=== PATIENT | male | born 1950 | race Caucasian/White ===

== ENCOUNTER → 2016-04-01 08:24 | Outpatient (CLI) | payer BC ==
[2015-06-29 19:15] VITALS: BMI 24.7
[~2016-04-01 08:24] MED LIST: AVODART0.5 MG PO; BAYER CHEWABLE81 MG PO; HEMOCYTE PLUS C1 CAP PO; HYDROCODONE-APA1 TAB PO; K-DUR20 MEQ PO; LASIX40 MG PO; LOPRESSOR25 MG PO; PREVACID30 MG PO; TRIGLIDE160 MG PO; VITAMIN D2000 UNIT PO
== END | disposition home or self-care (01) ==
LOC: D.US 08:24
DX: I70.219 Atherosclerosis of native arteries of extremities with intermittent claudication, unspecified extremity (principal)

== ENCOUNTER → 2016-12-13 13:30 | Outpatient (CLI) | payer BC ==
[2015-06-29 19:15] VITALS: BMI 24.7
== END | disposition home or self-care (01) ==
LOC: D.US 13:30
DX: I65.23 Occlusion and stenosis of bilateral carotid arteries (principal)

== ENCOUNTER → 2017-06-06 13:05 | Outpatient (CLI) | payer MEDICARE, BC ==
[2015-06-29 19:15] VITALS: BMI 24.7
[~2017-06-06 13:05] MED LIST changes: +ACTIGALL 300 M300 MG PO; +CO Q-10100 MG; +HYDROCODON-ACE1 EAC7 PO; +PLAVIX75 MG PO; +PROBIOTIC1 EAC1 PO; +PROTONIX40 MG PO
== END | disposition home or self-care (01) ==
LOC: D.CT 06-05 14:00
DX: I73.9 Peripheral vascular disease, unspecified (principal)

== ENCOUNTER 2017-06-09 13:26 | Outpatient (CLI) | payer MEDICARE, BC ==
[~2017-06-09] VITALS: Ht 177.8 cm; Wt 79.5 kg
--- NOTE | ~2017-06-09 | HEMODYNAMI ---
PATIENT:DARIAN RIOJAS MEDICAL RECORD: [id number] : 46 [id number] ADMISSION DATE: 06/09/17 Generatedon:06/09/201710:29 Patient name: DARIAN RIOJAS Patient #: [id number] SSN: DO B: 1950 Date of study: 06/09/2017 Page: Of Hemodynamic Procedure Report Patient Data Patient Demographics Procedure consent was obtained First Name: DARIAN Gender: Male Last Name: SHINE : 1950 [facility] Initial: E Age: 67 year(s) Patient #: [id number] Race: Unknown Additional ID: [id number] Contact details Address: [address] [place] [address] [address] State: [place] City: [place] Zip code: [address] Admission Admission Data Admission Date: 06/09/2017 Admission Time: 10:00 Procedure Procedure Types Cath Procedure Peripheral Cath Diagnostic Procedure Cath Peripheral Abd/Extremity Extremities Bilat Lower Extremity Procedure Description Procedure Date Procedure Date: 06/09/2017 Procedure Start Time: 10:02 Procedure Staff Name Function Reji Dalton RT Scrub Reji Dalton RT Monitor Darian Ashraf MD Performing Physician Gabriella Gallegos RN Nurse Alona Gutierrez RT Cdl Program Coordinator Procedure Data Cath Procedure Fluoroscopy Diagnostic fluoroscopy Total fluoroscopy Time: 3.9 time: 3.9 min min Diagnostic fluoroscopy Total fluoroscopy dose: 206 dose: 206 mGy mGy Contrast Material Contrast Material Type Amount (ml) Isovue 300 10 Entry Location Entry Primary Successful Side Size Upsize Upsize Entry Closure Succes sful Closure Location (Fr) 1 (Fr) 2 (Fr) Remarks Device Remarks Femoral Left Exoseal artery Diagnostic catheters Device Type Used For End Catheter Placement Merit ULTRA BOLUS FLUSH 5Fr 65CM catheter ([id number]) Procedure Medications Medication Administration Route Dosage Heparin Flush Bag added to field 3 bags (1000units/500ml NS) Lidocaine 1% added to field 20 Oxygen NC 3 l/min Versed I.V. 1 mg Fentanyl I.V. 50 mcg Versed I.V. 1 mg Fentanyl I.V. 50 mcg Hemodynamics Rest Heart Rate: 74 (bpm) Snapshots Pre Cath Intra NCS Post Cath Vital Signs Time Heart Resp SPO2 etCO2 NIBP (mmHg) Rhythm Pain Sedation Rate (ipm) (%) (mmHg) Status Level (bpm) 9:55:15 75 13 98 20.3 154/81(127) NSR 0 (11) 10(A) , No pain 9:59:42 77 9 99 18.7 154/78(126) NSR 0 (11) 10(A) , No pain 10:04:02 74 9 100 17.2 151/82(133) NSR 0 (11) 10(A) , No pain 10:08:22 70 12 100 18.8 144/81(111) NSR 0 (11) 8(A) , No pain 10:12:42 71 12 100 21.8 149/80(117) NSR 0 (11) 8(A) , No pain 10:17:04 74 6 99 23.3 151/76(125) NSR 0 (11) 8(A) , No pain 10:21:24 72 5 99 25.5 150/79(125) NSR 0 (11) 8(A) , No pain 10:25:47 69 8 99 26.3 167/82(137) NSR 0 (11) 8(A) , No pain Medications Time Medication Route Dose Verified Delivered Reason Notes Effec tiveness by by 10:06:51 Heparin Flush added 3 Darian Farmer used for Bag to bags Ashraf Ashraf procedure (1000units/500ml field MD STEEN NS) 10:07:02 Lidocaine 1% added 20ml Darian Farmer used for to vial Ashraf Ashraf procedure field MD STEEN 10:07:18 Oxygen NC 3 Darian Quiroz used for l/min Ashraf El family day care provider MD 10:07:30 Versed I.V. 1 mg Darian Quiroz for Ashraf El RN sedation 10:07:40 Fentanyl I.V. 50 Darian Robertsody for mcg Ashraffroilan Gallegos RN sedation 10:22:43 Versed I.V. 1 mg Darian Quiroz for Ashraffroilan Gallegos RN sedation 10:22:50 Fentanyl I.V. 50 Darian Robertsody for mcg Ashraffroilan Gallegos RN sedation Procedure Log Time Note 9:34:46 Reji Dalton RT (R) (CV) sent for patient. Start room use. 9:35:01 Time tracking: Regular hours (M-F 7:00 - 5:00) 9:35:09 Plan of Care:Hemodynamics will remain stable., Cardiac rhythm will remain stable., Comfort level will be maintained., Respiratory function will remain adequate., Patient/ family verbilizes understanding of procedure., Procedure tolerated without complication., Recovers from procedure without complications.. 9:35:19 Patient received from Outpatients to IR Alert and oriented. Tansferred to table in Supine position. 9:35:20 Correct patient and procedure confirmed by team. 9:35:21 Signed procedure consent form obtained from patient. 9:35:23 ECG and BP/O2 sat monitors applied to patient. 9:35:24 Full Disclosure recording started 9:35:25 - 9:35:29 H&P Date Dictated: 06/09/2017 H&P Addendum completed by physician on day of procedure. (MUST COMPLETE FOR ALL OUTPATIENTS). 9:35:30 Pre-op teaching completed and patient verbalized understanding. 9:35:30 Pre-procedure instructions explained to patient. 9:35:32 Family in waiting room. 9:35:35 Patient NPO since Midnight. 9:35:46 Is the patient allergic to Iodine/contrast media? No. 9:35:55 Is patient on blood thinner?Yes 9:35:57 ACC The patient was administered the following blood thiners within the last 24 hours: ACCAspirin 9:36:00 Patient diabetic? No. 9:36:01 - 9:36:02 ----Pre-sedation anethsthesia assessment.---- 9:36:04 Previous problem with sedation/anesthesia? No ? 9:36:05 Snore? Yes 9:36:06 Sleep apnea? No 9:36:07 Deviated septum? No 9:36:10 Opens mouth fully? Yes 9:36:11 Sticks out tongue? Yes 9:36:15 Airway obstruction? No ? 9:36:17 Dentures? No ? 9:36:18 - 9:36:23 Pre procedure: right dorsailis pedis pulse Doppler 9:36:26 Pre procedure: left dorsailis pedis pulse Doppler 9:36:28 Pre procedure: right posterior tibial pulse Doppler 9:36:31 Pre procedure: left posterior tibial pulse Doppler 9:36:40 Patient pain scale 0/10 no pain. 9:36:54 IV patent on arrival in right hand with 0.9% NaCl at [facility]. 9:37:02 Bilateral groins area was prepped with chlora-prep and draped in steril e fashion 9:37:03 Alarms reviewed by R. N. 9:37:04 Sharps counted by scrub and verified by R.N. 9:37:07 Use device set IR Diagnostic 9:37:09 Sterile Angiographic Pack opened to sterile field. 9:37:10 Tegaderm 4 x 4 (1626W) opened to sterile field. 9:37:11 ACIST Manifold (31242) opened to sterile field. 9:37:12 Bag Decanter (2001S) opened to sterile field. 9:37:13 ACIST Syringe (68595) opened to sterile field. 9:37:13 ACIST Hand Control (47813) opened to sterile field. 9:37:47 SHEATH 5FR [place] (ZRV714) opened to sterile field. 9:37:48 PERCUTANEOUS ENTRY 19GA needle opened to sterile field. 9:37:49 TUBING Contrast Injection High Pressure (FYE713Y) opened to sterile field. 9:37:50 DOC .035 wire (N49991) opened to sterile field. 9:53:59 Vital chart was started 9:54:00 Baseline sample Acquired. 9:54:05 - 9:54:18 NGUYEN 260 wire (S97325) opened to sterile field. 9:54:21 A [email or web address] ULTRA BOLUS FLUSH 5Fr 65CM catheter ([id number]) was advanced over the wire and used for . 10:00:16 Physician arrived 10:02:04 --------ALL STOP TIME OUT------ 10:02:05 Final Timeout: patient, procedure, and site verified with staff and physician. All members of the team are in agreement. 10:02:23 Procedure started. 10:02:30 Local anesthetic to left femerol artery with Lidocaine 1% by Darian Ashraf MD.INITIAL ACCESS ONLY 10:06:51 Heparin Flush Bag (1000units/500ml NS) 3 bags added to field was administered by Darian Ashraf MD; used for procedure; 10:07:02 Lidocaine 1% 20ml vial added to field was administered by Darian Ashraf MD; used for procedure; 10:07:18 Oxygen 3 l/min NC was administered by Gabriella Gallegos RN; used for procedure; 10:07:30 Versed 1 mg I.V. was administered by Gabriella Gallegos RN; for sedation; 10:07:40 Fentanyl 50 mcg I.V. was administered by Gabriella Gallegos RN; for sedation ; 10:11:29 GLIDE CATHETER 5FR COBRA 65cm (CG502) opened to sterile field. 10:11:30 GLIDE WIRE ANGLE 180cm (XM6212) opened to sterile field. 10:11:43 TORQUE DEVICE PLASTIC .038 ( TD01) opened to sterile field. 10:17:57 Angiography was performed. 10:20:23 Sheath removed intact; hemostasis achieved with Exoseal to the Left Femoral artery. 10:20:23 A sheath was inserted into the Left Femoral artery 10:20:34 EXOSEAL 5Fr (EX500) opened to sterile field. 10:22:43 Versed 1 mg I.V. was administered by Gabriella Gallegos RN; for sedation; 10:22:50 Fentanyl 50 mcg I.V. was administered by Gabriella Gallegos RN; for sedation ; 10:23:25 Procedure ended.(Physican Out) 10:23:46 Fluoroscopy time 03.90 minutes. 10:23:55 Fluoroscopy dose: 206 mGy 10:23:55 Flurop Dose total: 206 10:24:03 Contrast amount:Isovue 300 10ml. 10:24:08 Procedure and supply charges have been captured, reviewed, submitted an d are correct. 10:27:17 Post Procedure Pulses reassessed and unchanged 10:28:00 Full Disclosure recording stopped Device Usage Item Name Manufacture Quantity Catalog Number Hospital Part Current Mn nimal Lot# / Charge Number Stock Stock Serial# Code Sterile Cardinal 1 [id number] 390233 999044 5 Angiographic Health Pack Tegaderm 4 x 4 3M 1 1626W 059263 894490 182185 5 (1626W) ACIST Manifold Acist 1 54141 773822 272556 531098 5 (49760) Medical Systems Inc Bag Decanter Microtek 1 2002S 841523 32451 516482 5 (2002S) Medical Inc. ACIST Hand Acist 1 42302 004689 751021 132058 5 Control Medical (29489) Systems Inc ACIST Syringe Acist 1 58546 506779 596663 396572 20 (35660) Medical Systems Inc SHEATH 5FR Terumo 1 QCT717 732239 693349 264061 40 [place] (TNG625) PERCUTANEOUS Cook Medical 1 J39736 252038 748890 5 2808194 ENTRY 19GA needle TUBING Merit 1 WSS998Z 289349 330208 131441 5 Contrast Medical Injection High Pressure (MCT325F) DOC .035 wire Cook Medical 1 E89104 857362 302763 5 7282810 (F19738) NGUYEN 260 wire Cook Medical 1 D08196 775018 670111 5 7574941 (W33277) Merit ULTRA Merit 1 [id number]-PA 636601 857814 5 BOLUS FLUSH Medical 5Fr 65CM catheter ([id number]) GLIDE CATHETER Terumo 1 CG502 800678 083181 5 5FR COBRA 65cm (CG502) GLIDE WIRE Terumo 1 LT9425 145491 491665 717424 5 ANGLE 180cm (KZ1625) TORQUE DEVICE [place] 1 TD01 794593 874006 749819 5 PLASTIC .038 ( Scientific TD01) EXOSEAL 5Fr Cardinal 1 EX500 504922 746086 658608 10 [id number] (EX500) Health Signature Audit [place] Stage Time Signature Unsigned Intra-Procedure 06/09/2017 Alona Gutierrez 10:29:45 AM RT(R) Signatures Monitor : Reji Signature : Krystle RT Date : Time : [address] [place] [address]
[2017-06-09 08:10] LABS: BASOPHILS 0.7 % (0-2); EOSINOPHILS 1.5 % (0-7); HEMATOCRIT 40.9 % (42.0-54.0); HEMOGLOBIN 13.8 g/dL (13.5-17.5); LYMPHOCYTES 34.7 % (15-50); MCH 32.3 pg (26.0-34.0); MCHC 33.7 g/dL (31.0-37.0); MCV 95.8 fL (80.0-100.0); MEAN PLATELET VOLUME 10.9 fL (7.4-10.4); NEUTROPHILS 55.1 % (40-80); PLATELET COUNT 257 10x3/uL (130-400); RBC 4.27 10x6/uL (4.20-6.10); RDW 12.6 % (11.5-14.5); WBC 4.5 10x3/uL (4.8-10.8)
[2017-06-09 08:12] VITALS: Ht 177.8 cm; Wt 79.5 kg
[2017-06-09 08:20] LABS: INR 0.96 (0.85-1.17); PROTIME 12.4 SECONDS (11.6-15.0)
[2017-06-09 08:21] LABS: APTT 28.3 SECONDS (22.8-39.4)
[2017-06-09 09:12] LABS: CALCIUM 9.2 mg/dL (8.5-10.1); CARBON DIOXIDE 23.9 mmol/L (21.0-32.0); CREATININE - SERUM 1.7 mg/dL (0.6-1.3); POTASSIUM - SERUM 4.9 mmol/L (3.5-5.1)
[~2017-06-09 13:26] MED LIST changes: -ACTIGALL 300 M300 MG PO; -CO Q-10100 MG; -HYDROCODON-ACE1 EAC7 PO; -PLAVIX75 MG PO; -PROBIOTIC1 EAC1 PO
[2017-06-15] MEDS ORDERED: PLAVIX75 MG PO (09:37)
[2017-06-15] MEDS ORDERED: ACTIGALL 300 M300 MG PO (09:37)
[2017-06-15] MEDS ORDERED: CO Q-10100 MG (09:38)
[2017-06-15] MEDS ORDERED: PROBIOTIC1 EAC1 PO (09:39)
== END 2017-06-09 14:30 ==
LOC: D.SP 13:26
PROVIDERS: Specialist
DX: I99.8 Other disorder of circulatory system (principal); I70.235 Atherosclerosis of native arteries of right leg with ulceration of other part of foot; Z01.812 Encounter for preprocedural laboratory examination

== ENCOUNTER 2017-06-16 05:00 | Day surgery (SDC) | payer MEDICARE, BC ==
[2017-06-15 11:05] LABS: HEMATOCRIT 42.9 % (42.0-54.0); HEMOGLOBIN 14.4 g/dL (13.5-17.5); MCH 32.8 pg (26.0-34.0); MCHC 33.6 g/dL (31.0-37.0); MCV 97.7 fL (80.0-100.0); MEAN PLATELET VOLUME 10.4 fL (7.4-10.4); RBC 4.39 10x6/uL (4.20-6.10); RDW 12.3 % (11.5-14.5); WBC 6.6 10x3/uL (4.8-10.8)
[2017-06-15 11:28] LABS: APTT 29.6 SECONDS (22.8-39.4); INR 0.93 (0.85-1.17); PROTIME 12.1 SECONDS (11.6-15.0)
[2017-06-15 11:30] LABS: APPEARANCE CLEAR (CLEAR); BILIRUBIN NEGATIVE (NEGATIVE); COLOR YELLOW (YELLOW); GLUCOSE NEGATIVE (NEGATIVE); KETONE NEGATIVE (NEGATIVE); NITRITE NEGATIVE (NEGATIVE); PROTEIN NEGATIVE (NEGATIVE); UROBILINOGEN NORMAL (NORMAL)
[2017-06-15 11:34] LABS: ALBUMIN 3.8 g/dL (3.4-5.0); ANION GAP 14.3 mmol/L (8-16); BILIRUBIN - TOTAL 0.4 mg/dL (0.2-1.3); CALCIUM 9.6 mg/dL (8.5-10.1); CARBON DIOXIDE 24.1 mmol/L (21.0-32.0); CREATININE - SERUM 1.5 mg/dL (0.6-1.3); POTASSIUM - SERUM 4.4 mmol/L (3.5-5.1); PROTEIN - SERUM 7.8 g/dL (6.4-8.2)
[~2017-06-16] VITALS: Ht 175.3 cm; Wt 80.3 kg
--- NOTE | ~2017-06-16 | HP ---
PATIENT: ESSIE RIOJAS MEDICAL RECORD: [id number] ACCOUNT: [id number] LOCATION[facility] : 48 ADMISSION DATE: 06/16/17 HISTORY AND PHYSICAL EXAMINATION ESSIE Cotto (67yo, M) ID# [id number]. Date/Time06/14/2017 11:[id number] Dept.[facility] ClinicProviderEDMATT DEAN MDInsuranceMed Primary: [place] ([place]) Insurance # : [id number] Employer Name : RETIRED Med Secondary: [place] (MEDICARE SUPPLEMENT) Insurance # : [id number] Employer Name : RETIRED Prescription: CMX - Member is eligible. Chief Complaint PVD - peripheral vascular disease Followup: Carotid artery stenosis Followup: Coronary arteriosclerosis in [place] artery s/p CABGx4/LCEA 06/29/15 now referred for PVD from Dr Ashraf Patient's Care Team Sales Promotion Manager: MAYA MCGREGOR MD: [address] [place] [phone], , Patient's Pharmacies [facility] ([facility] ): [address] [place] [phone], , Vitals BP:140/74 sitting R arm 06/14/2017 10:55 amBP Cuff Size:adult 06/14/2017 10:55 amHR:64 06/14/2017 10:55 amHt:5 ft 9 in 06/14/2017 10:51 amWt:175 lbs 06/14/2017 10:57 amBMI:25.8 06/14/2017 10:57 amAllergies Reviewed Allergies NKDAMedications Reviewed Medications aspirin 81mg daily06/13/17 enteredErika Watkinsclopidogrel 75 mg vnoojv58/27/18 filledCaremarkdutasteride 0.5 mg ebabsdv94/13/18 filledCaremarkfenofibrate 160 mg ffwnce91/12/18 filledCaremarkFish Oil daily06/13/17 enteredErika Watkinshydrocodone 10 mg-chlorpheniramine 8 mg/5 mL oral susp extend.rel 12hr02/15/17 filledCaremarkHYDROcodone 5 mg-acetaminophen 325 mg /03/17 filledCaremarklevoFLOXacin 750 mg /03/18 filledCaremarkmethylPREDNISolone 4 mg tablets in a dose pack02/15/17 filledCaremarkmetoprolol tartrate 25 mg tablet TAKE (1/2) TABLET TWICE DAILY. THANKS......06/01/17 filledCaremarkOsmoPrep 1.5 gram (1.102-0.398) gwazde53/26/18 filledCaremarkpantoprazole 40 mg tablet,delayed ateixjd17/20/18 filledCaremarksucralfate 1 gram jevreq46/05/18 filledCaremarkursodiol 300 mg xafsbnd51/12/18 filledCaremarkProblems Reviewed Problems Intermittent claudication due to atherosclerosis of [place] artery of limb - Onset: 06/14/2017 Peripheral arterial occlusive disease - Onset: 06/14/2017 Coronary arteriosclerosis in [place] artery Carotid artery stenosis Family History Reviewed Family History HISTORY AND PHYSICAL [id number] ESSIE RIOJAS Non-contributory.Father- Malignant tumor of colonPaternal Uncle- Malignant tumor of colonSocial History Reviewed Social History Cardiology Family history of heart disease?: N Smoking Status: Current every day smoker Smoker (1 PPD) High Cholesterol: Y High blood pressure: Y Surgical History Reviewed Surgical History Carotid Endarterectomy - 06/29/2015 - LEFT CABG - 06/29/2015 - x4 Past Medical History Reviewed Past Medical History Heart Disease: Y Hypertension: Y Peripheral Vascular Disease (PVD): Y Prostate Problems: Y Documents for Discussion N/A Screening None recorded. HPI Peripheral Vascular Disease Reported by patient. Location: calf; buttock; foot; starts in hip/buttock when walking, can go about half a block before it starts. Quality: aching; pain, heaviness Severity: interferes with normal activity Duration: has noted for years; significantly worsened past few months Onset/Timing: daily Context: during walking; at rest Alleviating Factors: rest Aggravating Factors: walking Associated Symptoms: skin discoloration; left fifth toe, tips of other toes dark reddish purple. Has area to lateral posterior edge of sole of foot that is tender and reddish purple. No open ulceration noted. Has patch of psoriasis to myers unchanged. claudication less than half block right lower extremity Cyanosis of toes right foot ROS Patient reports exercise intolerance but reports no fever, no night sweats, no significant weight gain, and no significant weight loss; severe right lower extremity claudication and early ischemic changes right foot. He reports no dry eyes, no irritation, and no vision change. He reports no difficulty hearing and no ear pain. He reports no frequent nosebleeds and no nose/sinus problems. He reports no sore throat, no bleeding gums, no snoring, no dry mouth, no mouth ulcers, no oral abnormalities, and no teeth problems. He reports no jugular vein distension and no swollen glands. H e reports no chest pain, no arm pain on exertion, no shortness of breath when walking, no shortness of breath when lying down, no palpitations, and no known heart murmur. He reports no cough, no wheezing, no shortness of breath, and no coughing up blood. H e reports no abdominal pain, no vomiting, normal appetite, no HISTORY AND PHYSICAL [id number] ESSIE RIOJAS diarrhea, not vomiting blood, no nausea, and no constipation. He reports no incontinence, no difficulty urinating, no hematuria, and no increased frequency. He reports no muscle aches, no muscle weakness, no arthralgias/joint pain, no back pain, and no swelling in the extremities. He reports no abnormal mole, no jaundice, and no rashes. He reports no loss of consciousness, no weakness, no numbness, no seizures, no dizziness, and no headaches. He r eports no depression, no sleep disturbances, feeling safe in relationship, and no alcohol abuse. He reports no fatigue. He reports no swollen glands and no bruising. He reports no runny nose, no sinus pressure, no itching, no hives, and no frequent sneezi ng. ROS as noted in the HPI Physical Exam Patient is a 67-year-old male. Constitutional: General Appearance well nourished and developed and healthy-appearing. Level of Distress NAD. Ambulation ambulating normally. Cardiovascular: Apical Impulse not disp laced or no thrill. Heart Auscultation normal s1 and s2; no murmurs, rubs, or gallops; and RRR. Arterial Pulses no abdominal aorta bruits or popliteal bruits; femoral bruit and diminished (right); popliteal not palpable (right) and dorsalis pedis not palpable (right); and 2+ bilateral, carotid 2+ bilateral, and femoral 2+ bilateral. Edema no edema or varicosities. Lungs: Repiratory Effort no dyspnea. Percussion no hyperresonance or dullness or flatness. Auscultation no wheezing, rhonchi, or rales / crackle s and breathing sounds normal, good air movement, and CTA except as noted. Abdomen: Bowl Sounds normal. Inspection and Palpation no tenderness, guarding, masses, or rebound tenderness and soft and non-distended. Liver non-tender and no hepatomegaly. Spleen non-tender and no splenomegaly. Hernia none palpable. Musculoskeletal System: Gait And Stance normal gait and stance. Digits and Nails normal nails and no cyanosis. Neurologic: Cranial Nerves grossly intact. Reflexes DTRs 2+ bilaterally throughout. Sensation grossly intact. Lymph Nodes: Lymph Nodes no cervical LAD, supraclavicular LAD, axillary LAD, or inguinal LAD. Eyes: Lids and Conjunctivae no discharge or pallor and non-injected. Pupils PERRLA. Cornea grossly intact. EOM EOMI. Lens clear. Sclerae non-icteric. Neck: Neck no masses or enlarged lymph nodes and supple, trachea midline, and carotid bruits (left). Thyroid no enlargement or nodules and non-tender. Skin: Inspection and Palpation no rash, lesions, ulcers, jaundice, or abnormal nevi; ischemic cyanotic right foot Toes and heel. Assessment / Plan severe atherosclerosis right lower extremity with cyanosis and claudication 1. Intermittent claudication due to atherosclerosis of [place] artery of limb I70 .213: Atherosclerosis of [place] arteries of extremities with intermittent claudication, bilateral legs HISTORY AND PHYSICAL [id number] ESSIE RIOJAS 2. Peripheral arterial occlusive disease I73.9: Peripheral vascular disease, unspecified PERIPHERAL ARTERIAL DISEASE OF THE LEG: CARE INSTRUCTIONS 3. Coronary arteriosclerosis in [place] artery I25.10: Atherosclerotic heart disease of [place] coronary artery without angina pectoris 4. Carotid artery stenosis I65.29: Occlusion and stenosis of unspecified carotid artery CAROTID STENOSIS: CARE INSTRUCTIONS Discussion Notes the patient has severe stenosis in atherosclerosis of the right common femoral and superficial femoral arteries. Think the patient would benefit from diamondback atherectomy and superficial femoral atherectomy possible stent. if need be, i f unable to perform atherectomy he is a candidate for right common femoral superficial femoral and profunda femoral endarterectomy with patch angioplasty.I have discussed his disease process in detail with him and his as well as the alternative metho d s of treatment. We discussed endovascular as well as open repair including the expected benefits and risks which include bleeding, infection, stroke, loss of limb, , and the imponderables. he understands all the above and wishes to proceed with plann ed surgery scheduled for endovascular intervention and possible right femoral endarterectomy LANG DEAN MD at 1318 CC: [id number] DICTATION DATE: 06/14/17 1100 MULTIGRAPHER: DM 06/14/17 1525 [facility] 06/16/17 [facility] [address] [place] [address]
--- NOTE | ~2017-06-16 | OP ---
PATIENT NAME: ESSIE RIOJAS MEDICAL RECORD: [id number] :46 LOCATION:D.OPS ADMISSION DATE: SURGEON: LANG LEIVA MD DATE OF OPERATION: 06/16/2017 SURGEON: Lang Leiva MD ANESTHESIA: General endotracheal, Dr. Menon. OPERATION PERFORMED: 1. Endovascular repair of the common femoral, profunda femoral, and distal superficial femoral artery occlusive disease. 2. Retrograde sheath placement, left common femoral artery, 4-Citizen [place], 5-Citizen [place], 6-[place]izen [place] long. 3. Right external iliac arteriogram. 4. Right superficial femoral arteriogram. 5. Posterior tibioperoneal artery trunk arteriogram. 6. Diamondback atherectomy of the superficial femoral artery at the adductor canal. 7. Angioplasty superficial femoral artery, 5 x 40 at the adductor canal. 8. Diamondback atherectomy, superficial femoral artery takeoff. 9. Diamondback atherectomy, profunda femoral takeoff. 10. Angioplasty of the profunda femoral artery, 5 x 40. 11. Angioplasty superficial femoral artery, 5 x 40. 12. Arteriogram of common femoral artery with runoff to the knee. 13. Arteriogram from the knee to the foot with runoff. PREOPERATIVE DIAGNOSES: Rest pain, right lower extremity with critical limb ischemia. POSTOPERATIVE DIAGNOSIS: Severe stenosis of the common femoral, superficial femoral, and profunda femoral arteries. INDICATION FOR OPERATION: Critical limb ischemia. FINDINGS OF THE OPERATION: 1. Right external iliac arteriogram demonstrates severe stenosis at the takeoff of the superficial femoral artery and profunda femoral artery. 2. Right superficial femoral arteriogram demonstrates severe stenosis at the adductor canal with atherosclerosis throughout, but no other significant stenosis. 3. Posterior tibioperoneal artery trunk demonstrates good 3-vessel runoff to the foot. 4. Diamondback atherectomy of superficial femoral artery demonstrates much improved flow at the adductor canal. 5. Angioplasty of superficial femoral artery with a 5 x 40 balloon with excellent result and no residual stenosis. 6. Diamondback atherectomy of superficial femoral artery takeoff. 7. Diamondback atherectomy of the profunda femoral takeoff. 8. Angioplasty of the profunda femoral artery with a 5 x 40 balloon demonstrates much improved flow with excellent flow through the profunda artery. 9. Angioplasty of superficial femoral artery 5 x 40 with excellent flow through the superficial femoral artery. A common femoral arteriogram demonstrates excellent flow into both the profunda and superficial femoral artery. 10. Angiogram of right common femoral artery with runoff to the knee OPERATIVE REPORT [id number] ESSIE RIOJAS demonstrates excellent flow through the atherectomized area and good flow below the knee. 11. Arteriogram right popliteal artery to the foot demonstrates excellent 3-vessel runoff to the foot through the dorsalis pedis, posterior tibial, and peroneal arteries. CONTRAST: 145 mL. FLUOROSCOPY TIME: 19 minutes and 2 seconds. DESCRIPTION OF PROCEDURE: After informed consent, adequate preoperative medication evaluation, the patient was brought to the operating room, placed on the table in supine position. After induction of general endotracheal anesthesia and application of appropriate monitoring devices, the abdomen, groins and right leg were prepped and draped in sterile field, utilizing Betadine scrub, alcohol, and Betadine solution. A Betadine-impregnated drape was also used. Utilizing a micropuncture technique, the left common femoral artery was accessed and a 4-[place] sheath placed. This was exchanged for a 5-[place] sheath. Utilizing a Glidewire and rim catheter, the right external iliac artery was selected and arteriogram demonstrated the above findings with stenosis of the superficial femoral artery. Utilizing a glide catheter and Regalia wire, the superficial femoral artery was accessed. Exchange made for an Amplatz and a 6-[place]izen [place] sheath placed in the right external iliac artery distally. The exchange was made for an 0.035 Quick-Cross and Regalia wire. The posterior tibioperoneal artery trunk was selected. The superficial femoral arteriogram demonstrates severe stenosis at the adductor canal and a posterior tibioperoneal artery trunk. Arteriogram demonstrated good flow through the anterior tibial, posterior tibial, and peroneal arteries. A ViperWire was then placed in the peroneal artery. A Diamondback atherectomy 2.0 was used at the adductor canal with much improved flow. Angioplasty utilizing a 5 x 40 balloon demonstrated excellent flow through the area with no residual stenosis. Attention was then turned towards the takeoff of the superficial femoral artery utilizing a Diamondback atherectomy device. The takeoff was opened, although it was suboptimal. The profunda was then selected with the ViperWire and the profunda takeoff was atherectomized with the 2.0 atherectomy device. The profunda femoral artery was then ballooned with a 5 x 40 balloon with an excellent result and minimal residual stenosis. The superficial femoral was then reselected with a contreras wire utilizing an 0.018 Regalia. The proximal superficial femoral artery was then angioplastied with a 5 x 40 balloon. Arteriogram then demonstrated excellent flow through the profunda and superficial femoral artery. The patient was given papaverine directly through the common femoral artery and arteriogram with runoff was then performed. There was excellent flow to the knee. Exchange was made for an 0.035 Quick-Cross at the distal popliteal artery and arteriogram demonstrated excellent 3-vessel runoff to the foot with dorsalis pedis and posterior tibial forming the plantar and dorsal arch. The catheters, wires, sheaths were removed. The heparin given as the first sheath was placed was reversed with 50 mg of protamine. A 6-[place]izen [place] Angio-Seal was then deployed in the left common femoral artery with excellent hemostasis. The patient had good Doppler signals in both dorsalis pedis and posterior tibial arteries. 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 TRANSINT:[id number] Voice Confirmation ID: [id number] DOCUMENT ID: [id number] OPERATIVE REPORT [id number] ESSIE RIOJAS EDWARD MD at 1318 CC: [id number] DICTATION DATE: 06/16/17 1102 FLIGHT OPERATIONS MANAGER: 06/16/17 1319 [facility] 06/16/17 [address] [place] [address]
[~2017-06-16 05:00] MED LIST changes: +ACTIGALL 300 M300 MG PO; +CO Q-10100 MG; +PLAVIX75 MG PO; +PROBIOTIC1 EAC1 PO
[2017-06-16 05:28] VITALS: BP 135/75; Ht 175.3 cm; Wt 80.3 kg
[2017-06-16] MEDS ORDERED: HYDROCODON-ACE1 EAC7 PO (10:52)
[2017-06-16 15:00] LABS: HEMATOCRIT 39.3 % (42.0-54.0); HEMOGLOBIN 13.1 g/dL (13.5-17.5); MCH 32.1 pg (26.0-34.0); MCHC 33.3 g/dL (31.0-37.0); MCV 96.3 fL (80.0-100.0); MEAN PLATELET VOLUME 10.1 fL (7.4-10.4); RBC 4.08 10x6/uL (4.20-6.10); RDW 12.3 % (11.5-14.5); WBC 8.5 10x3/uL (4.8-10.8)
== END 2017-06-16 16:05 | disposition home or self-care (01) ==
LOC: D.OPS 05:00 → D.PAN 07:30 → D.OPS 16:05
PROVIDERS: Internal Medicine Cardiovascular Disease
DX: I70.213 Atherosclerosis of native arteries of extremities with intermittent claudication, bilateral legs (principal); I25.10 Atherosclerotic heart disease of native coronary artery without angina pectoris; I65.29 Occlusion and stenosis of unspecified carotid artery; F17.200 Nicotine dependence, unspecified, uncomplicated; I10 Essential (primary) hypertension; J44.9 Chronic obstructive pulmonary disease, unspecified; G47.30 Sleep apnea, unspecified; N40.0 Benign prostatic hyperplasia without lower urinary tract symptoms; Z01.812 Encounter for preprocedural laboratory examination

== ENCOUNTER → 2018-02-14 13:13 | Outpatient (CLI) | payer MEDICARE, BC ==
[2017-06-16 05:28] VITALS: BMI 26.2
[~2018-02-14 13:13] MED LIST changes: +HYDROCODON-ACE1 EAC7 PO
== END | disposition home or self-care (01) ==
LOC: D.US 13:13
DX: I65.23 Occlusion and stenosis of bilateral carotid arteries (principal)

== ENCOUNTER → 2018-06-22 09:31 | Outpatient (CLI) | payer MEDICARE, BC ==
[2017-06-16 05:28] VITALS: BMI 26.2
== END | disposition home or self-care (01) ==
LOC: D.CT 09:31
PROVIDERS: ATTEND Internal Medicine Cardiovascular Disease
DX: I74.09 Other arterial embolism and thrombosis of abdominal aorta (principal)

== ENCOUNTER 2018-08-22 05:24 | Outpatient (CLI) | payer MEDICARE, BC ==
[~2018-08-22] VITALS: Ht 175.3 cm; Wt 77.1 kg
--- NOTE | ~2018-08-22 | HEMODYNAMI ---
PATIENT:ESSIE RIOJAS MEDICAL RECORD: [id number] : 46 [id number] ADMISSION DATE: 08/22/18 Generatedon:08/22/201810:01 Patient name: ESSIE RIOJAS Patient #: [id number] SSN: DO B: 1950 Date of study: 08/22/2018 Page: Of Hemodynamic Procedure Report Patient Data Patient Demographics Procedure consent was obtained First Name: ESSIE Gender: Male Last Name: SHINE : 1950 [facility] Initial: E Age: 68 year(s) Patient #: [id number] Race: Unknown Additional ID: [id number] Contact details [address]: [address] [place] [address] [address] State: [place] City: [place] Zip code: [address] Admission Admission Data Admission Date: 08/22/2018 Admission Time: 5:24 Procedure Procedure Types Cath Procedure Peripheral Cath Diagnostic Procedure Abd/Extremity Extremities Bilat Lower Extremity Procedure Description Procedure Date Procedure Date: 08/22/2018 Procedure Start Time: 8:50 Procedure Staff Name Function Eben Mccabe MD Performing Physician Reji Dalton RT Monitor TAVARES HUMPHREY RT Scrub Acacia Jennings RN Nurse Procedure Data Cath Procedure Fluoroscopy Diagnostic fluoroscopy Total fluoroscopy Time: 8 time: 8 min min Diagnostic fluoroscopy Total fluoroscopy dose: 803 dose: 803 mGy mGy Contrast Material Contrast Material Type Amount (ml) Isovue 300 78 Entry Location Entry Primary Successful Side Size Upsize Upsize Entry Closure Succes sful Closure Location (Fr) 1 (Fr) 2 (Fr) Remarks Device Remarks Femoral Left 5 Fr Exoseal artery Diagnostic catheters Device Type Used For End Catheter Placement DIAGNOSTIC IMT 5Fr Catheter ([id number]) Procedure Medications Medication Administration Route Dosage Heparin Flush Bag added to field 3 bags (1000units/500ml NS) Lidocaine 1% added to field 20 Fentanyl I.V. 25 mcg Versed I.V. 0.5 mg Versed I.V. 0.5 mg Fentanyl I.V. 25 mcg Fentanyl I.V. 25 mcg Versed I.V. 0.5 mg Fentanyl I.V. 25 mcg Heparin Bolus I.V. 5000 units Versed I.V. 0.5 mg Versed I.V. 0.5 mg Fentanyl I.V. 25 mcg Hemodynamics Rest Heart Rate: 70 (bpm) Snapshots Pre Cath Intra NCS Post Cath Vital Signs Time Heart Resp SPO2 etCO2 NIBP (mmHg) Rhythm Pain Sedation Rate (ipm) (%) (mmHg) Status Level (bpm) 8:34:07 68 12 100 16.5 136/69(112) NSR 0 (11) 10(A) , No pain 8:38:25 59 13 100 16.5 137/64(119) NSR 0 (11) 10(A) , No pain 8:42:41 59 11 100 16.5 136/68(109) NSR 0 (11) 10(A) , No pain 8:46:55 64 13 100 16.5 135/78(107) NSR 0 (11) 10(A) , No pain 8:51:11 67 9 100 18 136/68(119) NSR 0 (11) 10(A) , No pain 8:55:19 80 28 14.2 151/90(123) NSR 0 (11) 8(A) , No pain 8:59:37 78 16 98 18 157/75(131) NSR 0 (11) 8(A) , No pain 9:03:57 64 9 94 21.7 143/73(110) NSR 0 (11) 8(A) , No pain 9:08:11 76 99 0 104/66(81) NSR 0 (11) 8(A) , No pain 9:13:10 57 6 96 12.7 138/71(109) NSR 0 (11) 8(A) , No pain 9:17:24 73 4 95 25.5 142/75(111) NSR 0 (11) 8(A) , No pain 9:21:40 70 14 97 27.7 148/77(120) NSR 0 (11) 8(A) , No pain 9:26:00 72 14 95 24.7 148/72(109) NSR 0 (11) 8(A) , No pain 9:30:19 77 18 95 24.7 133/74(101) NSR 0 (11) 8(A) , No pain 9:34:34 71 22 95 18.7 136/70(113) NSR 0 (11) 8(A) , No pain 9:38:51 70 10 95 21 135/70(107) NSR 0 (11) 8(A) , No pain 9:43:04 65 14 97 30 140/75(110) NSR 0 (11) 8(A) , No pain 9:47:21 79 15 98 24.7 126/73(107) NSR 0 (11) 8(A) , No pain 9:51:34 69 4 98 24.7 125/67(97) NSR 0 (11) 8(A) , No pain 9:55:49 58 12 99 18.8 121/64(99) NSR 0 (11) 8(A) , No pain 9:59:58 68 9 98 0 141/74(111) NSR 0 (11) 8(A) , No pain Medications Time Medication Route Dose Verified Delivered Reason Notes Effect iveness by by 8:40:06 Heparin Flush added 3 Eben Treadwell used for Bag to bags Eliot Mccabe MD procedure (1000units/500ml field STEEN NS) 8:40:24 Lidocaine 1% added 20ml Eben Treadwell used for to vial Eliot Mccabe MD procedure field STEEN 8:54:53 Fentanyl I.V. 25 Eben Hernándezi used for mcg Dick Mccabe RN procedure 8:55:17 Versed I.V. 0.5 Eben Acacia used for mg Dick Mccabe RN procedure 8:58:07 Versed I.V. 0.5 Eben Acacia used for mg Dick Mccabe RN procedure 8:58:19 Fentanyl I.V. 25 Eben Acacia used for mcg Dick Mccabe RN procedure 9:01:01 Fentanyl I.V. 25 Eben Acacia used for mcg Dick Mccabe RN procedure 9:01:09 Versed I.V. 0.5 Eben Acacia used for mg Dick Mccabe RN procedure 9:22:20 Fentanyl I.V. 25 Eben Acacia used for mcg Dick Mccabe RN procedure 9:25:50 Heparin Bolus I.V. 5000 Eben Acacia used for units Dick Mccabe RN procedure 9:31:21 Versed I.V. 0.5 Eben Roger used for mg Dick Mccabe RN, MD 9:45:03 Versed I.V. 0.5 Eben Hernándezi used for mg Dick Mccabe RN, MD 9:45:56 Fentanyl I.V. 25 Eben Hernándezi used for mcg Dick Mccabe RN, MD Procedure Log Time Note 8:16:26 Reji Stinsonlety RT (R) (CV) sent for patient. Start room use. 8:16:40 Time tracking: Regular hours (M-F 7:00 - 5:00) 8:16:45 Plan of Care:Hemodynamics will remain stable., Cardiac rhythm will remain stable., Comfort level will be maintained., Respiratory function will remain adequate., Patient/ family verbilizes understanding of procedure., Procedure tolerated without complication., Recovers from procedure without complications.. 8:16:53 Patient received from Outpatients to IR Alert and oriented. Tansferred to table in Supine position. 8:16:56 Correct patient and procedure confirmed by team. 8:16:58 Signed procedure consent form obtained from patient. 8:16:59 ECG and BP/O2 sat monitors applied to patient. 8:17:00 Full Disclosure recording started 8:17:01 - 8:17:04 H&P Date Dictated: 08/22/2018 H&P Addendum completed by physician on day of procedure. (MUST COMPLETE FOR ALL OUTPATIENTS). 8:17:05 Pre-procedure instructions explained to patient. 8:17:06 Pre-op teaching completed and patient verbalized understanding. 8:17:12 Family in waiting room. 8:17:14 Patient NPO since Midnight. 8:17:19 Use device set IR Diagnostic 8:17:20 ACIST Syringe (41918) opened to sterile field. 8:17:21 ACIST Hand Control (15804) opened to sterile field. 8:17:21 ACIST Manifold (20368) opened to sterile field. 8:17:21 Bag Decanter (2002S) opened to sterile field. 8:17:22 Sterile Angiographic Pack opened to sterile field. 8:17:22 Tegaderm 4 x 4 (1626W) opened to sterile field. 8:17:36 Is the patient allergic to Iodine/contrast media? No. 8:17:38 Is patient on blood thinner?Yes 8:17:43 ACC The patient was administered the following blood thiners within the last 24 hours: ACCPlavix 8:23:09 Patient diabetic? Yes. 8:23:10 If diabetic: On Metformin? No 8:23:13 - 8:23:14 ----Pre-sedation anethsthesia assessment.---- 8:23:17 Previous problem with sedation/anesthesia? No ? 8:23:20 Snore? Yes 8:23:24 Sleep apnea? No 8:23:29 Deviated septum? No 8:23:31 Opens mouth fully? Yes 8:23:32 Sticks out tongue? Yes 8:23:34 Airway obstruction? No ? 8:23:37 Dentures? No ? 8:26:57 Pre procedure: right dorsailis pedis pulse Doppler 8:27:01 Pre procedure: left dorsailis pedis pulse Doppler 8:27:04 Pre procedure: right posterior tibial pulse Doppler 8:27:07 Pre procedure: left posterior tibial pulse Doppler 8:27:11 Patient pain scale 0/10 no pain. 8:33:04 Baseline sample Acquired. 8:33:04 Vital chart was started 8:33:12 IV patent on arrival in left forearm with 0.9% NaCl at KVO. 8:33:14 Sharps counted by scrub and verified by R.N. 8:33:15 Alarms reviewed by R. N. 8:33:18 Left groin area was prepped with chlora-prep and draped in sterile fashion 8:40:06 Heparin Flush Bag (1000units/500ml NS) 3 bags added to field was administered by Eben Mccabe MD; used for procedure; 8:40:24 Lidocaine 1% 20ml vial added to field was administered by Eben Mccabe MD; used for procedure; 8:48:55 Physician arrived 8:48:56 --------ALL STOP TIME OUT------ 8:48:57 Final Timeout: patient, procedure, and site verified with staff and physician. All members of the team are in agreement. 8:49:02 Left groin site verified by team. 8:49:07 Fire Safety Assessment: A--An alcohol-based skin anteseptic being used preoperatively., C--Open oxygen or nitrous oxide is being used. 8:49:12 3a) 45-59 Moderately reduced kidney function. 8:50:00 Sedation plan: IV Moderate Sedation Medication:Versed, Fentanyl 8:50:30 Procedure started. 8:50:42 Local anesthetic to left femerol artery with Lidocaine 1% by Eben Mccabe MD.INITIAL ACCESS ONLY 8:50:45 Angiodynamics Omniflush 5Fr 65cm (71169813) opened to sterile field. 8:50:45 DOC .035 wire (C69682) opened to sterile field. 8:50:46 Micropuncture VSI 4FR kit opened to sterile field. 8:50:46 SHEATH 5FR M[place] (ISD294) opened to sterile field. 8:50:47 TUBING Contrast Injection High Pressure (COY643B) opened to sterile field. 8:50:49 Access obtained with 4Fr micropunture. 8:50:59 A 5 Fr sheath was inserted into the Left Femoral artery 8:54:53 Fentanyl 25 mcg I.V. was administered by Acacia Jennings RN; used for procedure; 8:55:17 Versed 0.5 mg I.V. was administered by Acacia Jennings RN; used for procedure; 8:58:07 Versed 0.5 mg I.V. was administered by Acacia Jennings RN; used for procedure; 8:58:19 Fentanyl 25 mcg I.V. was administered by Acacia Jennings RN; used for procedure; 9:00:18 AMPLATZ Super Stiff 75cm wire ([id number]) opened to sterile field. 9:01:01 Fentanyl 25 mcg I.V. was administered by Acacia Jennings RN; used for procedure; 9:01:09 Versed 0.5 mg I.V. was administered by Acacia Jennings RN; used for procedure; 9:02:37 GLIDE WIRE ANGLE 180cm (UU8070) opened to sterile field. 9:02:38 GLIDE CATHETER 5FR ANGLED 65cm (CG507) opened to sterile field. 9:02:50 TORQUE DEVICE PLASTIC .038 ( TD01) opened to sterile field. 9:10:46 A DIAGNOSTIC IMT 5Fr Catheter ([id number]) was advanced over the wire an d used for . 9:12:03 NGUYEN 260 wire (V18602) opened to sterile field. 9:12:55 GLIDE WIRE ANGLE 260cm (TK0562) opened to sterile field. 9:17:24 Cordis 5Fr [place] Destination sheath opened to sterile field. 9:17:52 INFLATOR BasixTOUCH (MG4448) opened to sterile field. 9:22:20 Fentanyl 25 mcg I.V. was administered by Acacia Jennings RN; used for procedure; 9:23:46 TORQUE DEVICE PLASTIC .038 ( TD01) opened to sterile field. 9:25:07 GLIDE CATHETER 5FR COBRA 65cm (CG502) opened to sterile field. 9:25:50 Heparin Bolus 5000 units I.V. was administered by Acacia Jennings RN; used for procedure; 9:31:21 Versed 0.5 mg I.V. was administered by Acacia eJnnings RN; used for procedure; 9:31:51 Inflate balloon Inflation number: 1 A Evercross 4 x 2 x 135 Balloon ([id number]) was prepped and advanced across the Undefined1 , then inflated to 20 FRANCES for 1:11 (min:sec) . 9:35:27 EXOSEAL 5Fr (EX500) opened to sterile field. 9:38:29 Inflate balloon Inflation number: 2 A Evercross 5 x 2 x 135 Balloon ([id number]) was prepped and advanced across the Undefined1 , then inflated to 16 FRANCES for 0:27 (min:sec) . 9:45:03 Versed 0.5 mg I.V. was administered by Acacia Jennings RN; used for procedure; 9:45:56 Fentanyl 25 mcg I.V. was administered by Acacia Jennings RN; used for procedure; 9:51:13 Sheath removed intact; hemostasis achieved with Exoseal to the Left Femoral artery. 9:51:18 Procedure ended.(Physican Out) 9:51:46 Fluoroscopy time 08.00 minutes. 9:51:51 Fluoroscopy dose: 803 mGy 9:51:51 Flurop Dose total: 803 9:51:58 Contrast amount:Isovue 300 78ml. 9:52:05 Sharps counted by scrub and verified by R.N. 9:53:21 Insertion/operative site no bleeding no hematoma. 9:53:25 Post-op/insertion site Left Femoral artery dressed using a 4 x 4 and Tegaderm. 9:54:00 Post Procedure Pulses reassessed and unchanged 9:54:01 Post procedure instruction explained to patient.Patient verbalizes understanding. 9:54:02 Procedure and supply charges have been captured, reviewed, submitted an d are correct. 10:00:48 Report given to Outpatients. 10:00:52 Patient transfered to Outpatients with Stretcher. 10:01:24 Vital chart was stopped Intervention Summary Intervention Notes Time ActionType Lesion and Equipment Used Action# Pressure Duration Attributes 9:31:51 Inflate Undefined1 Evercross 4 x 2 1 20 01:11 balloon x 135 Balloon ([id number]) 9:38:29 Inflate Undefined1 Evercross 5 x 2 2 16 00:27 balloon x 135 Balloon ([id number]) Device Usage Item Name Manufacture Quantity Catalog Number Hospital Part Current Minimal Lot# / Charge Number Stock Stock Serial# Code ACIST Syringe Acist Medical 1 32430 506717 800365 478123 20 (82205) Systems Inc ACIST Hand Acist Medical 1 12346 472633 008195 041403 5 Control (53855) Systems Inc ACIST Manifold Acist Medical 1 55882 368212 752749 298648 5 (26780) Systems Inc Bag Decanter Microtek 1 091180 29173 712997 5 () Medical Inc. Sterile Cardinal 1 [id number] 152751 936687 5 Angiographic Health Pack Tegaderm 4 x 4 3M 1 1626W 914678 726472 021425 5 (1626W) Angiodynamics Angiodynamics 1 37269472 719058 501388 993427 5 Omniflush 5Fr 65cm (12742655) DOC .035 wire Cook Medical 1 N56433 638150 978344 5 (P56421) Micropuncture VSI VASCULAR 1 7266V 461242 058498 5 VSI 4FR kit SOLUTIONS SHEATH 5FR Terumo 1 QUF547 459102 026929 502703 5 Mckinney (HFP772) TUBING Contrast [facility] 1 [id number] 415965 176106 215458 5 Injection High Pressure (VOK620T) AMPLATZ Super [place] 1 [id number] 579030 595453 378006 5 [id number] Stiff 75cm wire Scientific ([id number]) GLIDE WIRE Terumo 1 PV4944 115713 136241 590469 5 ANGLE 180cm (PC6756) GLIDE CATHETER Terumo 1 CG507 788976 437274 5 5FR ANGLED 65cm (CG507) TORQUE DEVICE [place] 2 TD01 477369 264064 829238 5 PLASTIC .038 ( Scientific TD01) DIAGNOSTIC IMT [place] 1 [id number] 499885 994196 32599 5 [id number] 5Fr Catheter Scientific ([id number]) NGUYEN 260 wire [employer] 1 D46764 828435 29983 294069 5 (J39160) GLIDE WIRE Terumo 1 VR4349 920155 302828 096307 5 ANGLE 260cm (AI3207) Cordis 5Fr Cardinal 1 5486722 449229 69149 272523 5 [place] [facility] Destination sheath INFLATOR [facility] 1 MW1610 343125 609161 519640 5 BasixTOUCH (TN6153) GLIDE CATHETER Terumo 1 CG502 274452 265742 5 5FR COBRA 65cm (CG502) Evercross 4 x 2 Medtronic 1 [id number] 945857 821137 911314 5 D108202 x 135 Balloon ([id number]) EXOSEAL 5Fr Cardinal 1 EX500 493825 499773 328749 10 [id number] (EX500) Health Evercross 5 x 2 Medtronic 1 [id number] 179486 657088 229380 5 Y261550 x 135 Balloon ([id number]) Signature Audit [place] Stage Time Signature Unsigned Intra-Procedure 08/22/2018 Reji 10:01:18 AM Krystle RT (R) (CV) Signatures Monitor : Reji Signature : Krystle RT Date : Time : [address] [place] [address]
[2018-08-22 05:48] LABS: BASOPHILS 0.7 % (0-2); EOSINOPHILS 1.8 % (0-7); HEMATOCRIT 41.4 % (42.0-54.0); HEMOGLOBIN 14.1 g/dL (13.5-17.5); LYMPHOCYTES 28.1 % (15-50); MCH 33.2 pg (26.0-34.0); MCHC 34.1 g/dL (31.0-37.0); MCV 97.4 fL (80.0-100.0); MEAN PLATELET VOLUME 9.8 fL (7.4-10.4); MONOCYTES 9.2 % (2-11); NEUTROPHILS 60.2 % (40-80); PLATELET COUNT 241 10x3/uL (130-400); RBC 4.25 10x6/uL (4.20-6.10); RDW 12.7 % (11.5-14.5); WBC 6.1 10x3/uL (4.8-10.8)
[2018-08-22 05:51] LABS: ANION GAP 13.4 mmol/L (8-16); CALCIUM 8.9 mg/dL (8.5-10.1); CARBON DIOXIDE 25.9 mmol/L (21.0-32.0); CREATININE - SERUM 1.3 mg/dL (0.6-1.3); POTASSIUM - SERUM 4.3 mmol/L (3.5-5.1)
[2018-08-22 05:53] LABS: INR 1.04 (0.85-1.17); PROTIME 13.1 SECONDS (11.6-15.0)
[2018-08-22 05:54] LABS: APTT 36.4 SECONDS (22.8-39.4)
[2018-08-22] MEDS ORDERED: GEMFIBROZIL600 MG PO (06:31)
[2018-08-22 06:41] VITALS: BP 122/67; Ht 175.3 cm; Wt 77.1 kg
--- NOTE | 2018-08-22 10:22 | NUR ---
1010 SEE POST PROCEDURE CHECKLIST FOR VITAL SIGN TRENDS.
--- NOTE | 2018-08-22 10:39 | NUR ---
1025 NO BLEEDING NO HEMATOMA, ICE PACK PLACED,
--- NOTE | 2018-08-22 11:31 | NUR ---
1130 FINGER FOOD DIET SERVED.
== END 2018-08-22 14:15 | disposition home or self-care (01) ==
LOC: D.SP 05:24 → D.RAD 08:00 → D.SP 08:00
PROVIDERS: General Practice; ATTEND Internal Medicine Cardiovascular Disease
DX: I70.211 Atherosclerosis of native arteries of extremities with intermittent claudication, right leg (principal); Z01.812 Encounter for preprocedural laboratory examination

== ENCOUNTER → 2018-09-07 09:37 | Outpatient (CLI) | payer MEDICARE, BC ==
[2018-08-22 06:41] VITALS: BMI 25.1
[~2018-09-07 09:37] MED LIST changes: +GEMFIBROZIL600 MG PO
== END | disposition home or self-care (01) ==
LOC: D.HCCARDIO 09:30
PROVIDERS: ATTEND Internal Medicine Cardiovascular Disease
DX: I25.10 Atherosclerotic heart disease of native coronary artery without angina pectoris (principal); I10 Essential (primary) hypertension

== ENCOUNTER → 2019-02-21 12:50 | Outpatient (CLI) | payer MEDICARE, BC ==
[2018-08-22 06:41] VITALS: BMI 25.1
== END | disposition home or self-care (01) ==
LOC: D.US 12:50
PROVIDERS: ATTEND Internal Medicine Cardiovascular Disease
DX: I65.29 Occlusion and stenosis of unspecified carotid artery (principal)

== ENCOUNTER → 2019-10-29 12:30 | Outpatient (CLI) | payer MEDICARE, BC ==
[2018-08-22 06:41] VITALS: BMI 25.1
== END | disposition home or self-care (01) ==
LOC: D.HCCECHO 12:30
PROVIDERS: ATTEND Internal Medicine Cardiovascular Disease
DX: I25.10 Atherosclerotic heart disease of native coronary artery without angina pectoris (principal)

== ENCOUNTER → 2020-04-30 13:15 | Outpatient (CLI) | payer MEDICARE, BC ==
[2018-08-22 06:41] VITALS: BMI 25.1
== END | disposition home or self-care (01) ==
LOC: D.US 13:15
PROVIDERS: ATTEND Family Medicine
DX: R10.31 Right lower quadrant pain (principal); Z98.890 Other specified postprocedural states; I65.21 Occlusion and stenosis of right carotid artery

== ENCOUNTER → 2020-05-11 14:02 | Outpatient (CLI) | payer MEDICARE, BC ==
[2018-08-22 06:41] VITALS: BMI 25.1
== END | disposition home or self-care (01) ==
LOC: D.CT 14:00
PROVIDERS: ATTEND Family Medicine
DX: Z98.890 Other specified postprocedural states (principal)